=== PATIENT | female | born 1970 | race African-American/Black ===

== ENCOUNTER 2023-10-16 10:31 | Emergency (ER) | payer MEDICAID, OTHER ==
[~2023-10-16] VITALS: Ht 149.9 cm; Wt 89.0 kg
[~2023-10-16 10:31] MED LIST: ALBUTEROL INH; ATEN50TA PO; COLAZAL PO; DICY20TA54 PO; LORA1TAB PO; NORT50CA PO; ONDA4TAB5 PO; P20 PO; PARO30TA99 PO; PROT40 PO; QUESTRAN LIGHT PO
[2023-10-16 10:43] VITALS: O2SAT 98
[2023-10-16 11:01] LABS: BASOPHILS % 0.9 % (0.0-2.0); EOSINOPHILS % 4.3 % (0.0-5.0); HEMATOCRIT. 33.4 % (36.0-48.0); LYMPHOCYTES % 39.6 % (20.0-50.0); MEAN CORPUSCULAR HEMOGLOBIN 28.7 pg (28.0-32.0); MEAN CORPUSCULAR HGB CONC 32.9 g/dL (31.0-37.0); MEAN CORPUSCULAR VOLUME 87.1 fL (81.0-99.0); MEAN PLATELET VOLUME 7.9 fl (7.4-10.4); MONOCYTES % 10.2 % (2.0-8.0); PLATELET 333 x1000/uL (130-400); RED BLOOD CELL COUNT 3.84 mill/uL (4.2-5.4); WHITE BLOOD COUNT 6.8 x1000/uL (4.5-11.0)
[2023-10-16 11:11] LABS: PROTHROMBIN TIME 10.9 sec (9.6-11.0)
[2023-10-16 11:17] LABS: ALANINE AMINOTRANSFERASE 17 IU/L (10-49); ALBUMIN 4.3 g/dL (3.2-4.8); ASPARTATE AMINOTRANSFERASE 24 IU/L (<34); BILIRUBIN TOTAL 0.4 mg/dL (0.1-1.0); CALCIUM 8.9 mg/dL (8.7-10.4); CARBON DIOXIDE 28 mEq/L (21-32); CHLORIDE 104 mEq/L (98-107); CREATININE 0.7 mg/dL (0.6-1.0); GLUCOSE 101 mg/dL (70-105); PROTEIN TOTAL 7.9 g/dL (6.0-8.3); SODIUM 137 mEq/L (136-145); UREA NITROGEN BLOOD 12 mg/dL (9-23)
[2023-10-16] MEDS ORDERED: CEPH500T MT (11:41)
[2023-10-16] MEDS: CEFTRIAXONE SODIUM 1G VIAL IM NR (11:49)
[2023-10-16] MEDS: ACETAMINOPHEN 325MG TABLET PO ONE (12:03)
[2023-10-16 12:15] VITALS: BP 124/76; PULSE 80; RESP 13; TEMP 98.6
== END 2023-10-16 12:23 | disposition home or self-care (01) ==
LOC: ER 10:31
DX: L03.116 Cellulitis of left lower limb (principal); I10 Essential (primary) hypertension; J45.909 Unspecified asthma, uncomplicated; Z88.0 Allergy status to penicillin; Z88.1 Allergy status to other antibiotic agents; Z88.5 Allergy status to narcotic agent; Z88.6 Allergy status to analgesic agent; Z88.8 Allergy status to other drugs, medicaments and biological substances; Z88.9 Allergy status to unspecified drugs, medicaments and biological substances; Z79.899 Other long term (current) drug therapy; Z98.890 Other specified postprocedural states; Z90.710 Acquired absence of both cervix and uterus
CPT/HCPCS: 99285; 93971; 80053; 85025; 85610; 36415; 96372; J0696